=== PATIENT | female | born 1995 | race Caucasian/White ===

== ENCOUNTER 2019-11-06 21:23 | Emergency (ER) | payer BC ==
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
--- NOTE | 2019-11-08 10:41 | CR ---
Ankle Min 3V Rt CLINICAL HISTORY: Injury FINDINGS: The soft tissues are swollen laterally. No acute fracture or dislocation is noted. Ankle mortise is intact. There is a nondisplaced comminuted fracture of the distal fibula. Impression: Fracture distal fibula
== END 2019-11-06 23:11 | disposition home or self-care (01) ==
LOC: JP.ED 21:23
DX: S82.831A Other fracture of upper and lower end of right fibula, initial encounter for closed fracture (principal); X50.1XXA Overexertion from prolonged static or awkward postures, initial encounter
CPT/HCPCS: 29125; 29515; 73610-26-RT; 73610-RT; 99283; 99283-25